=== PATIENT | female | born 1945 | race Caucasian/White ===

== ENCOUNTER 2017-11-16 14:20 | Emergency (ER) | payer MEDICARE ==
[2017-11-16] MEDS ORDERED: Oxymetazoline HCl 0.05% ( 15 ML ) ONE (17:48)
== END 2017-11-16 17:55 | disposition home or self-care (01) ==
LOC: MADERS 14:20
DX: J20.9 Acute bronchitis, unspecified (principal); E78.5 Hyperlipidemia, unspecified; E05.90 Thyrotoxicosis, unspecified without thyrotoxic crisis or storm; F32.9 Major depressive disorder, single episode, unspecified; Z79.82 Long term (current) use of aspirin; Z79.899 Other long term (current) drug therapy
CPT/HCPCS: 99283